=== PATIENT | female | born 1990 | race Caucasian/White ===

== ENCOUNTER 2017-06-14 12:30 | Observation (INO) | payer OTHER ==
[~2017-06-14] VITALS: Ht 167.6 cm; Wt 85.3 kg
[2017-06-14 13:34] VITALS: BP 106/58
== END 2017-06-14 15:55 | disposition home or self-care (01) ==
LOC: MLD 12:30
PROVIDERS: ADMIT Obstetrics & Gynecology; ATTEND Obstetrics & Gynecology
DX: O76 Abnormality in fetal heart rate and rhythm complicating labor and delivery (principal); Z3A.34 34 weeks gestation of pregnancy
CPT/HCPCS: 76805; 81000; G0378; Q0092

== ENCOUNTER 2017-07-19 22:25 | Inpatient (IN) | payer OTHER ==
[~2017-07-19] VITALS: Ht 170.2 cm; Wt 88.5 kg
[2017-07-19 22:40] VITALS: BP 131/74
[2017-07-19] MEDS ORDERED: CARBOPROST 250 MCG/ML AMP IM PRN (22:40)
[2017-07-19] MEDS ORDERED: PROMETHAZINE 25 MG/ML VIAL IVP PRN (22:40)
[2017-07-19] MEDS ORDERED: NALBUPHINE HYDROCHLORIDE 10 MG/ML VIAL IVP PRN (22:40)
[2017-07-19] MEDS ORDERED: OXYTOCIN 20 UNITS in LACTATED RINGERS 1,000 ML IV SCH (22:40)
[2017-07-19] MEDS ORDERED: OXYTOCIN 10 UNITS/ML VIAL IM ONE (22:40)
[2017-07-19] MEDS ORDERED: METHYLERGONOVINE 0.2 MG/ML AMP IM PRN (22:40)
[2017-07-19] MEDS ORDERED: IBUPROFEN 800 MG TAB PO PRN (22:40)
[2017-07-19] MEDS ORDERED: NALBUPHINE HYDROCHLORIDE 10 MG/ML VIAL ONE (23:06)
[2017-07-19] MEDS ORDERED: PROMETHAZINE 25 MG/ML VIAL ONE (23:07)
[2017-07-19 23:26] LABS: APPEARANCE,URINE HAZY (CLEAR); BILIRUBIN,URINE NEGATIVE (NEGATIVE); BLOOD, URINE NEGATIVE (NEGATIVE); COLOR,URINE YELLOW (YELLOW); LEUKOCYTE ESTERASE ,URINE 1+ (NEGATIVE); NITRITE, URINE NEGATIVE (NEGATIVE); UGLUCOSE NEGATIVE (NEGATIVE)
[2017-07-19] MEDS: LACTATED RINGERS 1,000 ML IV SCH ×2 (23:28→23:31)
[2017-07-19 23:35] LABS: ANION GAP 17.7 (8-16); CARBON DIOXIDE 20.5 mmol/L (21-32); CREATININE 0.6 mg/dL (0.6-1.3); POTASSIUM 3.2 mmol/L (3.5-5.1); TOTAL BILIRUBIN 0.6 mg/dL (0.0-1.0)
[2017-07-19] MEDS ORDERED: ROPIVACAINE 0.2%/NS PREMIX 250 ML EPI ONE (23:39)
[2017-07-19 23:44] LABS: BASOPHILS % (AUTO) 0.5 % (0.0-2.0); EOSINOPHILS # (AUTO) 0.1 K/uL (0-0.4); EOSINOPHILS % (AUTO) 0.8 % (0.0-4.0); HEMATOCRIT 27.3 % (36-48); HEMOGLOBIN 8.4 g/dL (12.0-16.0); LYMPHOCYTES # (AUTO) 2.3 K/uL (2.5-16.5); MEAN CORPUSCULAR HEMOGLOBIN 22 pg (27-31); MEAN CORPUSCULAR HGB CONC 31 g/dL (33-37); MEAN CORPUSCULAR VOLUME 71 fL (80-94); MONOCYTES # (AUTO) 0.6 K/uL (0.8-1.0); MONOCYTES % (AUTO) 6.4 % (1.7-9.3); NEUTROPHILS # (AUTO) 5.7 K/uL (1.8-7.7); NEUTROPHILS % (AUTO) 66.3 % (42.2-75.2); PLATELET COUNT (AUTO) 264 K/uL (140-450); RED BLOOD CELL COUNT(AUTO) 3.85 MIL/uL (4.20-5.40); RED CELL DISTRIBUTION WIDTH 18.1 % (11.6-13.7); WHITE BLOOD COUNT (AUTO) 8.7 K/uL (4.8-10.8)
[2017-07-19 23:47] LABS: RBC,URINE 0-5 (RARE) /HPF (0-5)
[2017-07-20] MEDS ORDERED: OXYTOCIN 10 UNITS/ML VIAL ONE (00:21)
[2017-07-20] MEDS ORDERED: OXYTOCIN 20 UNITS/LR PREMIX 1,000 ML IV ONE (00:22)
[2017-07-20] MEDS ORDERED: METHYLERGONOVINE 0.2 MG/ML AMP IM PRN (02:30)
[2017-07-20] MEDS ORDERED: HYDROcodone/APAP 5/325 MG 1 TAB TAB PO PRN (02:30)
[2017-07-20] MEDS ORDERED: OXYTOCIN 10 UNITS/ML VIAL IM PRN (02:30)
[2017-07-20] MEDS ORDERED: MEASLES, MUMPS, AND RUBELLA 1 VIAL SQVAC PRN (02:30)
[2017-07-20] MEDS ORDERED: IBUPROFEN 800 MG TAB PO PRN (02:30)
[2017-07-20] MEDS ORDERED: BENZOCAINE/MENTHOL 20%-0.5% 60 GM CAN TP PRN (02:30)
[2017-07-20] MEDS ORDERED: TEMAZEPAM 15 MG CAP PO PRN (02:30)
[2017-07-20] MEDS ORDERED: PREN-546 PO (03:43)
[2017-07-20] MEDS ORDERED: METHYLERGONOVINE 0.2 MG/ML AMP ONE (04:21)
--- NOTE | 2017-07-20 08:56 | NUR ---
PATIENT HAS BEEN SCREENED AND CATEGORIZED LOW NUTRITION RISK. PATIENT WILL BE SEEN WITHIN 7 DAYS OF ADMISSION. 07/26/17 CORINNE EDWARDS MBA, RD
[2017-07-20] MEDS: oxyCODONE/APAP 5/325 MG 1 TAB TAB PO PRN (19:45)
[2017-07-20] MEDS ORDERED: METHYLERGONOVINE 0.2 MG TAB PO ONE (21:00)
[2017-07-20] MEDS ORDERED: DOCUSATE SOD/SENNA 50/8.6 MG 1 TAB PO SCH (21:00)
[2017-07-21] MEDS ORDERED: INFLUENZA VIRUS VACCINE QUAD 0.5 ML SYR IMVAC SCH (00:50)
[2017-07-21] MEDS: oxyCODONE/APAP 5/325 MG 1 TAB TAB PO PRN ×2 (01:09→11:11)
[2017-07-21 08:03] LABS: HEMATOCRIT 28.6 % (36-48); HEMOGLOBIN 8.6 g/dL (12.0-16.0)
[2017-07-21] MEDS ORDERED: METHYLERGONOVINE 0.2 MG TAB PO SCH (09:00)
[2017-07-21] MEDS ORDERED: IBUP-2213 PO ×2 (13:53→13:55)
== END 2017-07-21 14:40 | disposition home or self-care (01) | DRG 560 ==
LOC: MLD 22:25 → OBSVTOIN 22:25 → MFCC 07-20 05:47
PROVIDERS: ADMIT Obstetrics & Gynecology; ATTEND Obstetrics & Gynecology
PROC: 10E0XZZ Delivery of Products of Conception, External Approach (ICD-10-PCS; principal; 2017-07-19)
PROC: 10907ZC Drainage of Amniotic Fluid, Therapeutic from Products of Conception, Via Natural or Artificial Opening (ICD-10-PCS; 2017-07-19)
PROC: 0HQ9XZZ Repair Perineum Skin, External Approach (ICD-10-PCS; 2017-07-19)
PROC: 00HU33Z Insertion of Infusion Device into Spinal Canal, Percutaneous Approach (ICD-10-PCS; 2017-07-19)
PROC: 3E0234Z Introduction of Serum, Toxoid and Vaccine into Muscle, Percutaneous Approach (ICD-10-PCS; 2017-07-21)
PROC: 3E0234Z Introduction of Serum, Toxoid and Vaccine into Muscle, Percutaneous Approach (ICD-10-PCS; 2017-07-21)
DX: O70.0 First degree perineal laceration during delivery (principal); Z23 Encounter for immunization; Z37.0 Single live birth; Z3A.39 39 weeks gestation of pregnancy
CPT/HCPCS: 36415; 51702; 59409; 80053; 81001; 85018; 85025; 86592; 86886; 86900; 86901; 87086; 87340; 90658; 90715; J2210; J2300; J2550; J2590; J2795; J7120

== ENCOUNTER 2017-09-18 05:45 | Day surgery (SDC) | payer OTHER ==
[~2017-09-18] VITALS: Ht 167.6 cm; Wt 80.3 kg
[~2017-09-18 05:45] MED LIST: IBUP-2213 PO; PREN-546 PO
[2017-09-18] MEDS ORDERED: IBUPROFEN 800 MG TAB PO PRN (07:40)
[2017-09-18] MEDS ORDERED: ONDANSETRON 4 MG/2 ML VIAL IVP PRN ×2 (07:40→08:45)
[2017-09-18] MEDS ORDERED: ACETAMINOPHEN/CODEINE 300/30MG 1 TAB PO PRN (07:40)
[2017-09-18] MEDS ORDERED: MORPHINE SULFATE 4 MG/ML SYR IM/IVP PRN (07:40)
[2017-09-18] MEDS ORDERED: KETOROLAC 30 MG/ML VIAL IVP ONE (08:26)
[2017-09-18] MEDS ORDERED: DEXAMETHASONE 4 MG/ML VIAL IVP ONE (08:26)
[2017-09-18] MEDS ORDERED: LIDOCAINE 2% 100 MG/5 ML SYR IVP ONE (08:26)
[2017-09-18] MEDS ORDERED: ONDANSETRON 4 MG/2 ML VIAL IVP ONE ×2 (08:26→12:05)
[2017-09-18] MEDS ORDERED: PROPOFOL 200 MG/20 ML VIAL IV ONE (08:26)
[2017-09-18] MEDS ORDERED: SEVOFLURANE 250 ML BTL INH ONE (08:26)
[2017-09-18] MEDS ORDERED: BUPIVACAINE-MPF 0.5% 30 ML VIAL INJ ONE (08:35)
[2017-09-18] MEDS ORDERED: MIDAZOLAM 2 MG/2 ML VIAL ONE (08:40)
[2017-09-18] MEDS ORDERED: fentaNYL 0.05 MG/ML VIAL ONE (08:40)
[2017-09-18] MEDS ORDERED: HYDROmorphone PFS 2 MG/ML SYR ONE (09:01)
[2017-09-18] MEDS ORDERED: ONDANSETRON 4 MG/2 ML VIAL ONE (09:02)
[2017-09-18] MEDS: HYDROmorphone PFS 2 MG/ML SYR IVP PRN ×4 (09:10→09:40)
== END 2017-09-18 15:50 | disposition home or self-care (01) ==
LOC: MDS 05:45 → MMU 05:58 → MDS 15:50
PROVIDERS: ATTEND Obstetrics & Gynecology
DX: Z30.2 Encounter for sterilization (principal); I12.9 Hypertensive chronic kidney disease with stage 1 through stage 4 chronic kidney disease, or unspecified chronic kidney disease; N18.9 Chronic kidney disease, unspecified; D64.9 Anemia, unspecified; G40.909 Epilepsy, unspecified, not intractable, without status epilepticus; E66.3 Overweight; J45.909 Unspecified asthma, uncomplicated; K21.9 Gastro-esophageal reflux disease without esophagitis; Z64.1 Problems related to multiparity; Z79.899 Other long term (current) drug therapy; Z98.890 Other specified postprocedural states; F17.210 Nicotine dependence, cigarettes, uncomplicated
CPT/HCPCS: 58600; J0690; J1100; J1170; J1885; J2001; J2250; J2405; J2704; J3010; J3490; J7060; J7120